=== PATIENT | male | born 1970 | race Caucasian/White ===

== ENCOUNTER 2020-05-12 18:03 | Emergency (ER) | payer MEDICAID ==
[~2020-05-12] VITALS: Ht 188 cm; Wt 111.6 kg
[~2020-05-12 18:03] MED LIST: ASA81 PO; CARV25TA55 PO; HYG25 PO; LIP40 PO; LOSA100T3 PO; NIFE-2 PO; POTA20TA83 PO; TRAM50TA2 PO; WELSR150 PO
[2020-05-12 18:10] VITALS: BP_SYST 157
[2020-05-12] MEDS ORDERED: ONDANSETRON 4 MG ODT TAB PO ONE (20:15)
[2020-05-12] MEDS ORDERED: MORPHINE SULFATE 10 MG/ML VIAL IM ONE (20:15)
[2020-05-12] MEDS ORDERED: DIPHENHYDRAMINE INJ 50 MG/ML VIAL IVP ONE (20:15)
[2020-05-12] MEDS ORDERED: DIPHENHYDRAMINE INJ 50 MG/ML VIAL ONE (20:34)
[2020-05-12 20:35] VITALS: BP_SYST 148
== END 2020-05-12 20:35 | disposition home or self-care (01) ==
LOC: SED 18:03
DX: S93.492A Sprain of other ligament of left ankle, initial encounter (principal); I11.0 Hypertensive heart disease with heart failure; I50.9 Heart failure, unspecified; N28.9 Disorder of kidney and ureter, unspecified; W22.8XXA Striking against or struck by other objects, initial encounter; Y93.89 Activity, other specified; Y92.89 Other specified places as the place of occurrence of the external cause; Y99.8 Other external cause status
CPT/HCPCS: 96372; 99284; J1200; J2270; Q0162